=== PATIENT | male | born 1960 | race Hispanic/Latino ===

== ENCOUNTER → 2023-01-24 | Day surgery (SDC) | payer OTHER ==
[~2023-01-24] MED LIST: FAMOTIDINE20 MG PO; LACTATED RINGER'S 1,000 ML ONE; LIDOCAINE HCL 2% LOCAL INJ 5 ML SDV VIAL INJ ONE; LIPITOR10 MG PO; PROPOFOL IV EMULSION 10 MG/ML 20 ML VIAL ONE; ZESTRIL10 MG PO
[2023-01-24 09:30] VITALS: TEMP 97.3
[2023-01-24 09:57] VITALS: BP 132/81; PULSE 58; RESP 18; O2SAT 99
== END | disposition home or self-care (01) ==
LOC: OR 08:12
PROVIDERS: ATTEND Internal Medicine Gastroenterology
DX: K29.70 Gastritis, unspecified, without bleeding (principal); K31.7 Polyp of stomach and duodenum; K31.89 Other diseases of stomach and duodenum; K29.80 Duodenitis without bleeding; K44.9 Diaphragmatic hernia without obstruction or gangrene; K58.9 Irritable bowel syndrome, unspecified; I10 Essential (primary) hypertension; E78.5 Hyperlipidemia, unspecified; J30.1 Allergic rhinitis due to pollen; Z79.899 Other long term (current) drug therapy
CPT/HCPCS: 43239; 93005; J2001; J2704; J7121